=== PATIENT | male | born 1950 | race African-American/Black ===

== ENCOUNTER 2018-01-01 13:06 | Emergency (ER) | payer MEDICARE, MEDICAID ==
[~2018-01-01] VITALS: Ht 182.9 cm; Wt 87.0 kg
[2018-01-01 13:17] VITALS: BP 142/76
[2018-01-01] MEDS ORDERED: TETRACAINE 0.5% OPHTH DROPS 4ML LEFTEYE ONE (13:45)
[2018-01-01] MEDS ORDERED: FLUORESCEIN SODIUM 1MG/STRIP LEFTEYE ONE (13:45)
== END 2018-01-01 14:51 | disposition home or self-care (01) ==
LOC: ER 13:06
DX: H11.31 Conjunctival hemorrhage, right eye (principal); I10 Essential (primary) hypertension
CPT/HCPCS: 99283